=== PATIENT | male | born 1955 | race Caucasian/White ===

== ENCOUNTER → 2024-02-06 13:44 | Outpatient (REF) | payer OTHER, SELFPAY | LOC: RCS 13:44 | PROVIDERS: ATTENDING PHYSICIAN Internal Medicine Cardiovascular Disease; FAMILY PHYSICIAN Family Medicine | DX: I10 Essential (primary) hypertension (principal); I25.10 Atherosclerotic heart disease of native coronary artery without angina pectoris | CPT/HCPCS: 93306 ==

== ENCOUNTER → 2025-05-13 09:42 | Outpatient (REF) | payer OTHER, SELFPAY | LOC: RAD 09:42 | PROVIDERS: ATTENDING PHYSICIAN Student in an Organized Health Care Education/Training Program; FAMILY PHYSICIAN Family Medicine | DX: D68.9 Coagulation defect, unspecified (principal); E21.3 Hyperparathyroidism, unspecified; E55.9 Vitamin D deficiency, unspecified; M05.60 Rheumatoid arthritis of unspecified site with involvement of other organs and systems; M06.09 Rheumatoid arthritis without rheumatoid factor, multiple sites; M06.4 Inflammatory polyarthropathy; M06.9 Rheumatoid arthritis, unspecified; M10.09 Idiopathic gout, multiple sites; M11.20 Other chondrocalcinosis, unspecified site; M17.0 Bilateral primary osteoarthritis of knee; M25.561 Pain in right knee; M81.0 Age-related osteoporosis without current pathological fracture; R41.89 Other symptoms and signs involving cognitive functions and awareness; Z11.1 Encounter for screening for respiratory tuberculosis; Z11.59 Encounter for screening for other viral diseases; Z79.899 Other long term (current) drug therapy | CPT/HCPCS: 71046; 73630 ==

== ENCOUNTER → 2025-07-01 10:30 | Outpatient (REF) | payer OTHER, SELFPAY | LOC: RAD 10:30 | PROVIDERS: ATTENDING PHYSICIAN Student in an Organized Health Care Education/Training Program; FAMILY PHYSICIAN Family Medicine | DX: M81.0 Age-related osteoporosis without current pathological fracture (principal) | CPT/HCPCS: 77080 ==